=== PATIENT | female | born 1990 | race Caucasian/White ===

== ENCOUNTER 2018-11-22 10:11 | Day surgery (SDC) | payer OTHER ==
[~2018-11-22 10:11] MED LIST: CEFAZOLIN 2 GM/50 ML (PMX) 50 ML (FOR WT < 120 KG) IVPB; LACTATED RINGER'S 1,000 ML IV; SOD CHLORIDE 0.9% 1,000 ML IV
[2018-11-22] MEDS ORDERED: FENTAnyl 50 MCG/ML VIAL (10:46)
[2018-11-22] MEDS ORDERED: ROCURONIUM 50 MG INJ ×2 (10:46→12:56)
[2018-11-22] MEDS ORDERED: MIDAZOLAM 1 MG/ML 2 ML INJ (10:46)
[2018-11-22] MEDS ORDERED: LIDOCAINE 2% (SDV) 5 ML INJ (10:46)
[2018-11-22] MEDS ORDERED: PROPOFOL 20 ML (10:46)
[2018-11-22] MEDS ORDERED: CEFAZOLIN 1 GM INJ (10:46)
[2018-11-22] MEDS ORDERED: ROPIVACAINE 0.5 % 30 ML VIAL ×2 (11:46→13:32)
[2018-11-22] MEDS ORDERED: ONDANSETRON 4 MG INJ (11:46)
[2018-11-22] MEDS ORDERED: METOCLOPRAMIDE 10 MG INJ (11:47)
[2018-11-22 11:50] LABS: ADD MAN DIFF? NO
[2018-11-22 11:52] LABS: BASOPHILS % 0.4 % (0.0-2.0); EOSINOPHILS # 0.2 10^3/ul (0.0-0.5); EOSINOPHILS % 2.8 % (0.0-7.0); HEMATOCRIT 39.4 % (37.0-47.0); HEMOGLOBIN 13.1 g/dl (12.0-16.0); LYMPHOCYTES # 2.2 10^3/ul (0.8-2.9); LYMPHOCYTES % 32.4 % (15.0-51.0); MEAN CORPUSCULAR HEMOGLOBIN 30.3 pg (29.0-33.0); MEAN CORPUSCULAR HGB CONC 33.2 g/dl (32.0-37.0); MEAN PLATELET VOLUME 10.3 fl (7.4-10.4); MONOCYTE # 0.5 10^3/ul (0.3-0.9); MONOCYTES % 7.2 % (0.0-11.0); NEUTROPHIL # 3.9 10^3/ul (1.6-7.5); NEUTROPHILS % 56.9 % (39.0-77.0); PLATELET COUNT 286 10^3/UL (140-415); RED BLOOD COUNT 4.33 10^6/ul (4.20-5.40)
[2018-11-22 11:52] LABS: WHITE BLOOD COUNT 6.9 10^3/ul (4.8-10.8)
[2018-11-22] MEDS ORDERED: MEPERIDINE 25 MG INJ IV (12:00)
[2018-11-22] MEDS ORDERED: OXYCODONE/ACETAMINOPHEN (5/325) TAB PO ×2 (12:00)
[2018-11-22] MEDS ORDERED: HYDROmorphONE 1 MG/5 ML IV SYRINGE IV (12:00)
[2018-11-22] MEDS: BUPIVACAINE 0.5%/EPI (SDV) 30 ML INJ (12:16)
[2018-11-22] MEDS ORDERED: SUGAMMADEX SODIUM 200 MG/2 ML VIAL IV (13:13)
[2018-11-22] MEDS: HYDROmorphONE 1 MG/5 ML IV SYRINGE IV ×2 (14:11→14:24)
[2018-11-22] MEDS: ONDANSETRON 4 MG INJ IV (14:11)
[2018-11-22] MEDS ORDERED: morphine 2 MG INJ IV (14:30)
[2018-11-22] MEDS ORDERED: ONDANSETRON 4 MG INJ IV (14:30)
[2018-11-22] MEDS ORDERED: HYDROCODONE/APAP (5/325) TAB PO (14:30)
[2018-11-22] MEDS ORDERED: KETOROLAC 30 MG INJ IV (14:30)
[2018-11-22] MEDS: HYDROCODONE/APAP (5/325) TAB PO (15:24)
== END 2018-11-22 16:21 | disposition home or self-care (01) ==
LOC: SDS 10:11
DX: Z30.2 Encounter for sterilization (principal)
CPT/HCPCS: 58600; 85025; 86850; 86900; 86901; 88302

== ENCOUNTER 2018-11-26 20:23 | Emergency (ER) | payer OTHER | END 2018-11-26 23:39 | disposition home or self-care (01) | LOC: FTE 23:39 | DX: L76.82 Other postprocedural complications of skin and subcutaneous tissue (principal); Z87.891 Personal history of nicotine dependence | CPT/HCPCS: 99282 ==